=== PATIENT | female | born 1955 | race Caucasian/White ===

== ENCOUNTER 2017-12-30 20:12 | Emergency (ER) | payer OTHER, MEDICARE ==
[~2017-12-30] VITALS: Ht 172.7 cm; Wt 117.9 kg
[2017-12-30] MEDS ORDERED: DULOXETINE HCL60 MG PO (20:40)
[2017-12-30] MEDS ORDERED: COUMADIN 5 MG TA5 M1 PO (20:41)
[2017-12-30] MEDS ORDERED: AMBIEN 5 MG TABL5 M1 PO (20:41)
[2017-12-30] MEDS ORDERED: DILAUDID 2 MG TA2 MG PO (20:41)
[2017-12-30 21:41] LABS: ABSOLUTE NEUTROPHILS 4.9 thou/uL (1.4-8.2); BASOPHILS 0.9 % (0.0-2.0); EOSINOPHILS 2.6 % (0.0-3.0); HEMATOCRIT 40.4 % (37.0-47.0); HEMOGLOBIN 13.8 gm/dL (12.0-15.0); LYMPHOCYTES 24.2 % (24.0-44.0); MCHC 34.1 g/dL (28.0-37.0); MCV 90.8 fL (80.0-100.0); MONOCYTES 6.5 % (1.0-8.0); PLATELET COUNT 263 thou/uL (150-400); POLYS 65.8 % (36.0-66.0); RBC 4.45 mil/uL (4.20-5.00); WBC 7.5 thou/uL (4.0-11.0)
[2017-12-30 21:48] LABS: CALCIUM 9.1 mg/dL (8.5-10.1); CREATININE 0.6 mg/dL (0.6-1.0); POTASSIUM 4.1 mmol/L (3.5-5.1)
[2017-12-30] MEDS ORDERED: LEVAQUIN 750 M750 MG PO (22:01)
[2017-12-30 22:10] VITALS: BP 156/86
== END 2017-12-30 22:11 | disposition home or self-care (01) ==
LOC: ER 20:12
PROVIDERS: Physician Assistant
DX: J18.9 Pneumonia, unspecified organism (principal); Z88.6 Allergy status to analgesic agent; Z91.041 Radiographic dye allergy status

== ENCOUNTER → 2018-02-23 | Outpatient (CLI) | payer OTHER, MEDICARE ==
[~2018-02-23] MED LIST: AMBIEN 5 MG TABL5 M1 PO; COUMADIN 5 MG TA5 M1 PO; DILAUDID 2 MG TA2 MG PO; DULOXETINE HCL60 MG PO; LEVAQUIN 750 M750 MG PO
== END ==
LOC: CAT 10:42
DX: N20.0 Calculus of kidney (principal)

== ENCOUNTER 2018-06-05 19:34 | Inpatient (IN) | payer OTHER, MEDICARE ==
[~2018-06-05] VITALS: Ht 172.7 cm; Wt 132.4 kg
[2018-06-05 19:35] VITALS: BP 175/94
[2018-06-05] MEDS ORDERED: ALBUTEROL2.5 MG/31 INH (20:25)
[2018-06-05 20:40] LABS: ABSOLUTE NEUTROPHILS 2.8 thou/uL (1.4-8.2); BASOPHILS 0.9 % (0.0-2.0); EOSINOPHILS 3.4 % (0.0-3.0); HEMATOCRIT 41.2 % (37.0-47.0); HEMOGLOBIN 14.1 gm/dL (12.0-15.0); LYMPHOCYTES 34.3 % (24.0-44.0); MCH 30.8 pg (26.0-34.0); MCHC 34.3 g/dL (28.0-37.0); MCV 89.9 fL (80.0-100.0); PLATELET COUNT 238 thou/uL (150-400); POLYS 49.4 % (36.0-66.0); RBC 4.59 mil/uL (4.20-5.00); RDW 13.9 % (10.5-14.5); WBC 5.7 thou/uL (4.0-11.0)
[2018-06-05 20:49] LABS: ANION GAP 6 mmol/L (7-16); BUN 17 mg/dL (7-18); CALCIUM 9.6 mg/dL (8.5-10.1); CHLORIDE 106 mmol/L (98-107); CO2 28 mmol/L (21-32); CREATININE 0.8 mg/dL (0.6-1.0); GLUCOSE 112 mg/dL (74-106); POTASSIUM 3.9 mmol/L (3.5-5.1); SODIUM 140 mmol/L (136-145)
[2018-06-05 20:57] LABS: ALBUMIN 3.4 g/dL (3.4-5.0); SGOT 19 U/L (15-37); SGPT 21 U/L (30-65); TOTAL BILIRUBIN 0.4 mg/dL (<0.1-1.0); TOTAL PROTEIN 7.3 g/dL (6.4-8.2); TROPONIN-I <0.06 ng/mL (<0.06)
[2018-06-05 22:16] VITALS: BP 157/90
--- NOTE | 2018-06-05 22:49 | NUR ---
PATIENT TAKEN TO FLOOR. RODE IN HER PERSONAL WHEELCHAIR. WILL NOT USE HOSPITAL VENTILATOR. PROVIDER AND RT AWARE. PATIENT PLEASANT AND TALKING DURING TRANSPORT. IV ANTIBIOTICS RUNNING UPON TRANSFER.
[2018-06-05 22:51] VITALS: BP 174/82
[2018-06-05 23:21] VITALS: BP 193/94
[2018-06-06 01:15] LABS: INR 1.1; PROTIME 11.8 Seconds (9.3-11.4)
[2018-06-06 01:16] VITALS: BP 157/85
[2018-06-06 04:00] VITALS: BP 159/86
--- NOTE | 2018-06-06 04:12 | NUR ---
PATIENT IS ALERT AND ORIENTED. PATIENT IS ON VENT AND VENT DEPENDENT. VENT IS AC V-800, R-12, PEEP 0, FIO2 21%. 2L BLEED IN OXYGEN AT HS. PATIENT HAS HER OWN VENT WHICH IS A TRILIGY. PATIENT HAS A [place] #6 TRACH PEDIACTIC SIZE. PATIENT CAN NOT HAVE ANY ADULT SIZE TRACHS OR ET TUBE DUE TO TRACHEAL STENOSIS. PATIENT HAS MS AND CAN'T FEEL FROM THE CHEST DOWN. PATIENT CAN PIVIOT TRANSFER SELF. PATIENT USES WHEELE CHAIR. PATIENT IS ON HONEY THICK LIQUIDS. PATIENTS BLOOD PRESSURE DID NOT MEET REQUIRMENTS. FOR HYDRALIZINE. PATIENTS PAIN IS CONTROLLED WITH HOME PAIN MEDICAITONS. PATIENT IS RESTING COMFORTABLEY IN BED. WCM. PATIENT IS PROGRESSING TO GOALS.
[2018-06-06 07:30] VITALS: BP 153/68
[2018-06-06 11:34] VITALS: BP 148/63
[2018-06-06 16:14] VITALS: BP 174/85
--- NOTE | 2018-06-06 18:31 | NUR ---
PT ALERT AND ORIENTED TIMES FOUR. VSS, VENT/TRACH 100%. C/O PAIN PRN PAIN MEDICATION GIVEN WITH SOME RELEIF. MYRIAM PLACED THIS AFTERNOON. PT TOLERATES MEDS AND MEALS. PT PROGRESSING TOWRADS POC GOALS.
[2018-06-06 20:14] VITALS: BP 190/87
[2018-06-07 05:03] VITALS: BP 145/71
--- NOTE | 2018-06-07 05:14 | NUR ---
PATIENT IS ADVANCING IN HER CARE PLAN. VITAL SIGNS STABLE WITH PATIENT HAVING NO COMPLAINTS OF NAUSEA. PATIENT DID COMPLAIN OF GENERALIZED PAIN WHICH WAS TREATED EFFECTIVELY WITH PRN MEDICATION. COMPLETELY ORIENTED, PATIENT IS ABLE TO PARTICIPATE IN CARE PLAN AND CALL APPROPRIATELY FOR NEEDS. TRACH/VENTILATOR, PATIENT IS VERY STABLE AND INVOLVED IN HER CARE. PATIENT OFFERED TURNS FREQUENTLY AND CHECKED FOR INCONTINENCE. CONTINUE PLAN OF CARE.
[2018-06-07 06:23] LABS: HEMATOCRIT 40.1 % (37.0-47.0); HEMOGLOBIN 13.7 gm/dL (12.0-15.0); MCHC 34.1 g/dL (28.0-37.0); MCV 90.9 fL (80.0-100.0); RBC 4.41 mil/uL (4.20-5.00); WBC 5.7 thou/uL (4.0-11.0)
[2018-06-07 06:35] LABS: INR 1.2; PROTIME 12.1 Seconds (9.3-11.4)
[2018-06-07 06:40] LABS: CALCIUM 8.9 mg/dL (8.5-10.1); CREATININE 0.8 mg/dL (0.6-1.0); POTASSIUM 3.8 mmol/L (3.5-5.1)
[2018-06-07 07:43] VITALS: BP 186/90
[2018-06-07] MEDS ORDERED: NORVASC5 MG PO (10:32)
[2018-06-07] MEDS ORDERED: LEVAQUIN 750 M750 MG PO (10:32)
[2018-06-07 10:37] VITALS: BP 186/90
[2018-06-07 10:51] VITALS: BP 159/81
[2018-06-07 10:54] VITALS: BP 159/81
--- NOTE | 2018-06-07 11:18 | NUR ---
PT ALERT AND ORIENTED TIMES FOUR. BP ELEVATED THIS MORNING SCHEDULED BP MEDS GIVEN BP NOW 159/81. OTHER VSS, 100%VENT/TRACH. MIGUEL TO DD. DENIES PAIN AT THIS TIME. PT TOLERATES MEDS AND MEALS. PT EXCITED FOR POSSIBLE DISCHARGE TODAY.
--- NOTE | 2018-06-07 21:50 | EKG ---
[address] [address] ELECTROCARDIOGRAM REPORT Name: HAITHI S Room #: 361-P [facility] IN M.R.#: [id number] Admission: 06/05/18 Attend Phys: Kb Blackwell MD Discharge: 06/07/18 Date of : 57 Report #: [id number] THIS REPORT FOR: //name// [facility] ED Test Date: 2018-06-05 Test Time: 20:19:22 Pat Name: THI VALLES Department: Room: [facility] Gender: F Club Director: jllorena : 1955 Requested By: Ja Rey Order Number: [id number] MD: Xavier Martinez Measurements Intervals [place] Rate: 61 P: 10 MA: 136 QRS: -12 QRSD: 94 T: 44 QT: 434 QTc: 438 Interpretive Statements Sinus rhythm Baseline wander in lead(s) V1 No previous ECG available for comparison Electronically Signed On 06-07-2018 21:50:07 TAX MANAGER by Xavier Martinez [email or web address] <ELECTRONICALLY SIGNED> By: Xavier Martinez MD 06/07/18 2150 18 18 Xavier Martinez MD /JONO
== END 2018-06-07 12:43 | disposition home or self-care (01) | DRG 208 ==
LOC: ER 19:34 → EROBS 21:33 → 3W 22:51
PROVIDERS: Internal Medicine; Nurse Practitioner Acute Care; Physician Assistant; ADMIT Hospitalist
PROC: 5A1945Z Respiratory Ventilation, 24-96 Consecutive Hours (ICD-10-PCS; principal; 2018-06-05)
DX: J18.9 Pneumonia, unspecified organism (principal); J96.20 Acute and chronic respiratory failure, unspecified whether with hypoxia or hypercapnia; G82.50 Quadriplegia, unspecified; Z99.11 Dependence on respirator [ventilator] status; G35 Multiple sclerosis; I10 Essential (primary) hypertension; G89.29 Other chronic pain; Z79.01 Long term (current) use of anticoagulants; Z93.0 Tracheostomy status; Z90.49 Acquired absence of other specified parts of digestive tract; Z86.718 Personal history of other venous thrombosis and embolism; Z86.711 Personal history of pulmonary embolism; Z79.899 Other long term (current) drug therapy; Z88.6 Allergy status to analgesic agent; Z91.041 Radiographic dye allergy status
CPT/HCPCS: 10879

== ENCOUNTER → 2018-09-10 | Outpatient (CLI) | payer OTHER, MEDICARE ==
[~2018-09-10] MED LIST changes: +ALBUTEROL2.5 MG/31 INH; +NORVASC5 MG PO
--- NOTE | 2018-09-10 13:09 | NUR ---
PT IN FOR ROUTINE PORT FLUSH. SHE HAS PREVIOUSLY RESIDED IN THE [facility] AREA WHERE HER CLINIC MOVED HER FLUSH SCHEDULE TO Q 3 MONTHS. PORT ACCESSED WITH EASE, BRISK BLOOD RETURN OBTAINED, FLUSHED WITH SALINE THEN HEP FLUSH. PT DOES NOT WANT TO RESCHEDULE AT THIS TIME. STATES SHE IS MOVING TO [place], [place] AND FEELS THAT [facility] WILL BE A CLOSER FACILITY. PT GIVEN OUR DIRECT CLINIC NUMBER AND NURSE NAME IN THE EVENT SHE CHOOSES TO RETURN. PT IS VERY KNOWLEDGEABLE, IS VENT DEPENDENT AND VERY MOBILE AND INDEPENDENT IN HER MOTORIZED WHEELCHAIR. PT DESIRED NO OTHER SERVICES, JUST A QUICK FLUSH AND TO BE ON HER WAY. DISMISSED IN STABLE CONDITION.
== END ==
LOC: OPONC 06:08
DX: Z45.2 Encounter for adjustment and management of vascular access device (principal); G35 Multiple sclerosis

== ENCOUNTER 2018-10-12 18:50 | Emergency (ER) | payer OTHER, MEDICARE ==
[~2018-10-12] VITALS: Ht 172.7 cm; Wt 79.4 kg
[2018-10-12 19:28] LABS: ABSOLUTE NEUTROPHILS 5.9 thou/uL (1.4-8.2); BASOPHILS 0.7 % (0.0-2.0); EOSINOPHILS 1.1 % (0.0-3.0); HEMATOCRIT 45.2 % (37.0-47.0); HEMOGLOBIN 15.3 gm/dL (12.0-15.0); LYMPHOCYTES 25.1 % (24.0-44.0); MCH 30.7 pg (26.0-34.0); MCHC 33.8 g/dL (28.0-37.0); MCV 90.6 fL (80.0-100.0); MONOCYTES 5.5 % (1.0-8.0); PLATELET COUNT 345 thou/uL (150-400); POLYS 67.6 % (36.0-66.0); RBC 4.99 mil/uL (4.20-5.00); WBC 8.8 thou/uL (4.0-11.0)
[2018-10-12 19:34] LABS: ANION GAP 10 mmol/L (7-16); BUN 19 mg/dL (7-18); CHLORIDE 105 mmol/L (98-107); CO2 25 mmol/L (21-32); CREATININE 0.8 mg/dL (0.6-1.0); GLUCOSE 112 mg/dL (74-106); SODIUM 140 mmol/L (136-145)
[2018-10-12 19:41] LABS: INR 2.4; PROTIME 25.2 Seconds (9.3-11.4)
[2018-10-12 19:44] LABS: ALBUMIN 3.9 g/dL (3.4-5.0); MAGNESIUM 2.1 mg/dL (1.8-2.4); SGOT 16 U/L (15-37); SGPT 21 U/L (30-65); TOTAL BILIRUBIN 0.4 mg/dL (<0.1-1.0); TROPONIN-I <0.06 ng/mL (<0.06)
[2018-10-12 20:34] LABS: BE(vivo) -1.8 mmol/L (-2 to +3); PCO2 24.1 mmHg (35.0-45.0); pH 7.514 (7.360-7.450); sO2 98.2 % (92.0-98.0)
[2018-10-12 21:41] VITALS: BP 148/93
--- NOTE | 2018-10-13 09:09 | EKG ---
[address] [address] ELECTROCARDIOGRAM REPORT Name: THI VALLES Room #: [facility]#: [id number] ������������������ Admission: 10/12/18 ������������������ Attend Phys: Discharge: 10/12/18 ������������������ Date of : 57 Report #: [id number] ����������������������������������������������������������������� [id number] THIS REPORT FOR: //name// [facility] ED Test Date: 2018-10-12 Test Time: 19:08:10 Pat Name: THI VALLES Department: Room: Gender: F Packaging Inspector: KM : 1955 Requested By: Eusebia Sawant Order Number: [id number] MD: Lester Escobar Measurements Intervals [place] Rate: 76 P: MO: QRS: -25 QRSD: 90 T: 49 QT: 389 QTc: 438 Interpretive Statements Atrial fibrillation Borderline left axis deviation Compared to ECG 06/05/2018 20:19:22 Sinus rhythm no longer present Electronically Signed On 10-13-2018 9:09:21 CDT by Lester Escobar [email or web address] ��������������������������������������������� <ELECTRONICALLY SIGNED> ���������������������������������������� By: Lester Escobar MD, [facility] ��������������������������������������������� 10/13/18 0909 D: [birth year]/1907 07 Lester Escobar MD, FACC /EPI
== END 2018-10-12 21:46 | disposition home or self-care (01) ==
LOC: ER 18:50
PROVIDERS: Student in an Organized Health Care Education/Training Program
DX: I48.91 Unspecified atrial fibrillation (principal); I10 Essential (primary) hypertension; E66.9 Obesity, unspecified; Z68.26 Body mass index [BMI] 26.0-26.9, adult; Z88.2 Allergy status to sulfonamides; Z90.49 Acquired absence of other specified parts of digestive tract; Z88.6 Allergy status to analgesic agent; Z91.041 Radiographic dye allergy status

== ENCOUNTER → 2018-10-23 | Outpatient (CLI) | payer OTHER, MEDICARE ==
--- NOTE | 2018-10-23 14:40 | 2DMMODE ---
[facility] [place] [address] 2 D/M-MODE ECHOCARDIOGRAM Name: THI VALLES Room #: [facility]#: [id number] ������������� Admission: 10/23/18 ������������� Attend Phys: Dominic Springer Discharge: ��� ������������� ��� Date of : 57 Date of Service: 10/23/18 1440 �� Report #: [id number] �������� ��������������������������������������������[id number] THIS REPORT FOR: //name// APPROVED REPORT Study performed: 10/23/2018 12:30:08 EXAM: Comprehensive 2D, Doppler, and color-flow Echocardiogram Patient Location: Out-Patient Status: routine BSA: 2.37 HR: 75 bpm BP: 142/76 mmHg Rhythm: Sinus arrhythmia Other Information Study Quality: Fair/not all measurements accurately obtainable. Technically limited study due to patient in wheelchair, permanent vent. Indications Atrial Fibrillation Hx: Vtach, arrest, HTN. 2D Dimensions IVSd: 11.68 (7-11mm) LVOT Diam: 21.04 (18-24mm) LVDd: 44.04 mm PWd: 9.26 (7-11mm) LVDs: 33.73 (25-40mm) Aortic Root: 33.42 mm Aortic Valve AoV Peak Anthony.: 1.19 m/s AO Peak Gr.: 5.68 mmHg LVOT Max P.48 mmHg LVOT Max V: 1.06 m/s VON Vmax: 3.08 cm2 Mitral Valve E/A Ratio: 1.7 MV Decel. Time: 184.56 ms MV E Max Anthony.: 0.65 m/s MV A Anthony.: 0.38 m/s MV PHT: 53.52 ms [facility] [address] [place] [address] 2 D/M-MODE ECHOCARDIOGRAM Name: THI VALLES Room #: [facility]#: [id number] ������������� Admission: 10/23/18 ������������� Attend Phys: Dominic Springer Discharge: ��� ������������� ��� Date of : 57 Date of Service: 10/23/18 1440 �� Report #: [id number] �������� ��������������������������������������������[id number] IVRT: 86.51 ms Pulmonary Valve PV Peak Anthony.: 0.98 m/s PV Peak Gr.: 3.86 mmHg Tricuspid Valve TR Peak Anthony.: 2.31 m/s RAP Estimate: 5.00 mmHg TR Peak Gr.: 21.33 mmHg PA Pressure: 26.00 mmHg Left Ventricle The left ventricle is normal size. Mild basal septal hypertrophy is present. Left ventricular systolic function is normal. LVEF is 50-55%. The left ventricular diastolic function is normal. Right Ventricle Right ventricle is not well visualized but appears grossly normal in size and function. Atria Left atrium appears mildly dilated. The right atrium size is normal. Aortic Valve Aortic valve is trileaflet, mildly sclerotic. No aortic regurgitation is present. There is no aortic valvular stenosis. Mitral Valve The mitral valve is normal in structure. Mild mitral annular calcification. Mild mitral regurgitation. Tricuspid Valve The tricuspid valve is normal in structure. Mild tricuspid regurgitation. Estimated PAP is 25-30mmHg. Pulmonic Valve Pulmonic valve is not well visualized. Great Vessels The aortic root is normal in size. IVC is normal in size and collapses >50% with inspiration. Pericardium There is no pericardial effusion. <Conclusion> [facility] [address] [place] [address] 2 D/M-MODE ECHOCARDIOGRAM Name: THI VALLES Room #: [facility]#: [id number] ������������� Admission: 10/23/18 ������������� Attend Phys: Dominic Springer Discharge: ��� ������������� ��� Date of : 57 Date of Service: 10/23/18 1440 �� Report #: [id number] �������� ��������������������������������������������[id number] The left ventricle is normal size. LVEF is 50-55%. Left atrium appears mildly dilated. Aortic valve is trileaflet, mildly sclerotic. The mitral valve is normal in structure. Mild mitral annular calcification. Mild mitral regurgitation. The tricuspid valve is normal in structure. Mild tricuspid regurgitation. Estimated PAP is 25-30mmHg. Pulmonic valve is not well visualized. There is no pericardial effusion. ��������������������������������������������� <ELECTRONICALLY SIGNED> ���������������������������������������� By: Dominic Gabriel MD ��������������������������������������������� 10/23/18 1440 144 1440 Dominic Gabriel MD /INF
== END ==
LOC: CV 09:29
DX: I08.3 Combined rheumatic disorders of mitral, aortic and tricuspid valves (principal); I48.91 Unspecified atrial fibrillation

== ENCOUNTER → 2019-01-13 | Outpatient (CLI) | payer OTHER, MEDICARE ==
--- NOTE | 2019-01-13 10:55 | NUR ---
HERE FOR ROUTINE PORT FLUSH. RUNNING A MONTH BEHIND HER USUAL ROUTINE WHICH IS EVERY 3 MONTHS. PORT ACCESSED WITH EASE, BRISK BLOOD RETURN OBTAINED, FLUSHED AND DEACCESSED. DISMISSED IN STABLE CONDITION. SCHEDULED TO RETURN IN APRIL.
== END ==
LOC: OPONC 01-06 00:36
DX: Z45.2 Encounter for adjustment and management of vascular access device (principal)

== ENCOUNTER → 2019-04-14 | Outpatient (CLI) | payer OTHER, MEDICARE ==
--- NOTE | 2019-04-14 11:35 | NUR ---
PT HERE FOR [id number] PORT FLUSH ORDERED. REPORTS DOING WELL. PT IS VENT DEPENDENT, TRAVELS PER MOTORIZED WHEELCHAIR AND IS QUITE INDEPENDENT. PORT ACCESSED AND FLUSHED WITH EASE, BRISK BLOOD RETURN OBTAINED. SCHEDULED TO RETURN AGAIN IN 3 MONTHS. DISMISSED IN STABLE CONDITION.
== END ==
LOC: OPONC 10:36
DX: Z45.2 Encounter for adjustment and management of vascular access device (principal)

== ENCOUNTER → 2019-10-12 | Outpatient (CLI) | payer OTHER, MEDICARE ==
--- NOTE | 2019-10-12 14:46 | NUR ---
IN FOR PORTACATH FLUSH. ACCESSED PORTACATH WITHOUT DIFFICULTY AND ASPIRATED 10ML BLOOD. FLUSHED WITH 20ML NS FOLLOWED BY 500 UNITS HEPARIN. DEACCESSED PORTACATH. SCHEDULED TO RETURN IN 3 MONTHS FOR NEXT FLUSH. DISMISSED IN STABLE CONDITION.
== END ==
LOC: OPONC 08:38
DX: Z45.2 Encounter for adjustment and management of vascular access device (principal); G35 Multiple sclerosis

== ENCOUNTER → 2020-01-06 | Outpatient (CLI) | payer OTHER, MEDICARE ==
--- NOTE | 2020-01-06 16:30 | NUR ---
IN FOR [id number] PORTACATH FLUSH. ACCESSED PORTACATH WITHOUT DIFFICULTY AND RECEIVED GOOD BLOOD RETURN. FLUSHED PORT WITH 10 ML NS AND 500 UNITS HEPARIN AND THEN DEACCESSED. SCHEDULED TO RETURN IN 30 MONTHS FOR NEXT FLUSH. DISMISSED IN STABLE CONDITION.
== END ==
LOC: OPONC 09:23
PROVIDERS: ATTEND Family Medicine
DX: Z45.2 Encounter for adjustment and management of vascular access device (principal); G35 Multiple sclerosis

== ENCOUNTER → 2020-04-07 | Outpatient (CLI) | payer OTHER, MEDICARE ==
--- NOTE | 2020-04-07 14:42 | NUR ---
IN FOR Q3 MONTH PORTACATH FLUSH. PATIENT IS WC BOUND AND ON A RESPIRATOR, HOWEVER ABLE TO TALK. PORTACATH ACCESSED WITHOUT DIFFICULTY AND RECEIVED GOOD BLOOD RETURN. FLUSHED WITH 10 ML NS FOLLOWED BY 500 UNITS HEPARIN 100 UNITS/ML. DEACCESSED PORTACATH AND APPLIED A BANDAID. NEXT APPT. SCHEDULED. DISMISSED IN STABLE CONDITION.
== END ==
LOC: OPONC 11:46
PROVIDERS: ATTEND Family Medicine
DX: Z45.2 Encounter for adjustment and management of vascular access device (principal); G35 Multiple sclerosis

== ENCOUNTER → 2020-06-30 | Outpatient (CLI) | payer OTHER, MEDICARE ==
[2020-06-30 13:10] VITALS: BP 153/82
--- NOTE | 2020-06-30 15:17 | NUR ---
IN FOR [id number] PORTACATH FLUSH. ACCESSED PORT WITHOUT DIFFICULTY AND RECEIVED GOOD BLOOD RETURN. FLUSHED WITH 10 ML NS FOLLOWED BY HEPARIN 500 UNITS. DEACCESSED AND DISMISSED IN STABLE CONDITION. SCHEDULED TO RETURN SEPTEMBER 21 FOR NEXT FLUSH.
== END ==
LOC: OPONC 07:06
PROVIDERS: ATTEND Family Medicine
DX: Z45.2 Encounter for adjustment and management of vascular access device (principal)

== ENCOUNTER → 2020-08-16 | Outpatient (CLI) | payer OTHER, MEDICARE ==
--- NOTE | 2020-08-16 14:15 | NUR ---
[facility] PORT ACCESSED WITHOUT DIFFICULTY. FLUSHED WITH NORMAL SALINE BUT NO BLOOD RETURN. CATH NIKKO 2 MG PLACED IV AND REMAINED IN CATHETER FOR ONE HOUR. AFTER ONE HOUR CATH NIKKO WAS REMOVED WELL 10CC OF BLOOD WITH BRISK BLOOD RETURN. ELVIA CATH THEN FLUSHE WITH NORMAL SALINE AND PACKED WITH HEPARIN. SCHEDULED FOR EVERY THREE MONTH PROT FLUSH. DC IN WHEEL CHAIR TO HOME.
== END ==
LOC: OPONC 09:03
PROVIDERS: ATTEND Family Medicine
DX: G35 Multiple sclerosis (principal)

== ENCOUNTER → 2020-08-21 | Outpatient (CLI) | payer OTHER, MEDICARE | LOC: HYPER 11:51 | PROVIDERS: ATTEND Emergency Medicine Emergency Medical Services | DX: I70.248 Atherosclerosis of native arteries of left leg with ulceration of other part of lower leg (principal); L97.821 Non-pressure chronic ulcer of other part of left lower leg limited to breakdown of skin; L03.116 Cellulitis of left lower limb; R60.0 Localized edema; E66.01 Morbid (severe) obesity due to excess calories; N18.9 Chronic kidney disease, unspecified; G35 Multiple sclerosis; I48.91 Unspecified atrial fibrillation; J42 Unspecified chronic bronchitis; J96.10 Chronic respiratory failure, unspecified whether with hypoxia or hypercapnia; Z79.01 Long term (current) use of anticoagulants; Z68.41 Body mass index [BMI] 40.0-44.9, adult ==

== ENCOUNTER → 2020-09-04 | Outpatient (CLI) | payer OTHER, MEDICARE | LOC: HYPER 10:29 | PROVIDERS: ATTEND Emergency Medicine Emergency Medical Services | DX: I70.248 Atherosclerosis of native arteries of left leg with ulceration of other part of lower leg (principal); L97.821 Non-pressure chronic ulcer of other part of left lower leg limited to breakdown of skin; L03.116 Cellulitis of left lower limb; R60.0 Localized edema; E66.01 Morbid (severe) obesity due to excess calories; N18.9 Chronic kidney disease, unspecified; G35 Multiple sclerosis; I48.91 Unspecified atrial fibrillation; J42 Unspecified chronic bronchitis; J96.10 Chronic respiratory failure, unspecified whether with hypoxia or hypercapnia; Z79.01 Long term (current) use of anticoagulants; Z68.41 Body mass index [BMI] 40.0-44.9, adult ==

== ENCOUNTER → 2020-11-16 | Outpatient (CLI) | payer OTHER, MEDICARE ==
--- NOTE | 2020-11-16 12:17 | NUR ---
PT IN FOR Q3 MONTH PORT MAINTENANCE. PORT ACCESSED WITHOUT DIFFICULTY, BRISK BLOOD RETURN OBTAINED, PT FLUSHED AND DEACCESSED. SCHEDULED TO RETURN IN 3 MONTHS. LOOKS WELL, STATES FEELING WELL. NO CONCERNS NOTED. DISMISSED IN STABLE CONDITION.
== END ==
LOC: OPONC 10:34
PROVIDERS: ATTEND Family Medicine
DX: Z45.2 Encounter for adjustment and management of vascular access device (principal); G35 Multiple sclerosis

== ENCOUNTER → 2021-01-15 | Outpatient (CLI) | payer OTHER, MEDICARE | LOC: ULTRA 11:31 | PROVIDERS: ATTEND Family Medicine | DX: R31.9 Hematuria, unspecified (principal) ==

== ENCOUNTER → 2021-02-22 | Outpatient (CLI) | payer OTHER, MEDICARE ==
[~2021-02-22] MED LIST changes: +CEFEPIME HCL2 GM IV
--- NOTE | 2021-02-22 14:16 | NUR ---
PT HERE FOR Q3 MONTH PORT FLUSH. NO NEW SYMPTOMS OR CONCERNS TO REPORT. PORT ACCESSED WITH NO COMPLICATIONS. FLUSHES AND ASPIRATES WELL. FLUSHED WITH HEPARIN PER PROTOCOL. DEACCESSED. PT SCHEDULED TO RETURN ON May AT 1100. LEFT UNIT IN STABLE CONDITION VIA WC.
== END ==
LOC: OPONC 02-14 11:26
PROVIDERS: ATTEND Family Medicine
DX: Z45.2 Encounter for adjustment and management of vascular access device (principal); G35 Multiple sclerosis

== ENCOUNTER → 2021-07-11 | Outpatient (CLI) | payer OTHER, MEDICARE ==
--- NOTE | 2021-07-11 12:20 | NUR ---
HERE FOR ROUTING PORT FLUSH WHICH PT DOES Q 3 MONTHS. REPORTS DOING WELL. PORT ACCESSED WITH EASE, BRISK BLOOD RETURN OBTAINED. FLUSHED WITH 20 ML NORMAL SALINE FOLLOWED BY PORT FLUSH. DISMISSED IN STABLE CONDITION. SCHEDULED TO RETURN AGAIN ON September.
== END ==
LOC: OPONC 06-07 15:18 → EDSTATUS 06-07 16:21 → OPONC 07-04 16:07
PROVIDERS: ATTEND Family Medicine
DX: Z45.2 Encounter for adjustment and management of vascular access device (principal); G35 Multiple sclerosis; Z99.11 Dependence on respirator [ventilator] status